=== PATIENT | female | born 1985 | race Caucasian/White ===

== ENCOUNTER 2023-11-07 10:43 | Day surgery (SDC) | payer BC, MEDICAID, SELFPAY ==
--- NOTE | 2023-11-05 08:11 | PCM.HP.BLA ---
History and Physical Date of Admission: 11/07/23 Pre-Op History and Physical ? HPI: The patient is a 38 year old female presenting for pre-operative visit. She is scheduled for hysteroscopy, Sis Endometrial Ablation, for AUB on 11/07/23. Procedure discussed along with risks, benefits and complications. Other alternatives discussed for management. Consent form signed? Yes. ? ? PAST MEDICAL HISTORY PAST MEDICAL HISTORY Diagnosis Date ? Anemia ? ? Celiac disease ? ? ? PAST SURGICAL HISTORY PAST SURGICAL HISTORY Procedure Laterality Date ? DELIVERY ONLY ? 04/13/2010 ? , low transverse ? DELIVERY ONLY ? 07/08/15 ? , low transverse ? LIG/TRNSXJ FLP TUBE ABDL/VAG APPR UNI/BI ? 07/08/15 ? Tubal ligation ? ? ? CURRENT MEDICATIONS Current Outpatient Medications Medication Sig Dispense Refill ? CONCERTA 18 mg biphasic tablet TAKE 1 TABLET BY MOUTH ONCE DAILY IN THE MORNING ? ? ? FLUoxetine HCl 20 mg tablet ? levonorgestrel (MIRENA) 20 mcg/24 hours (8 yrs) 52 mg IUD 1 Each by INTRAUTERINE route as directed. (Patient not taking: Reported on 11/04/2023) 1 Each 0 ? buPROPion XL (WELLBUTRIN XL) 150 mg 24 hr tablet Take 150 mg by mouth once daily. (Patient not taking: Reported on 09/11/2023) ? ? ? topiramate (TOPAMAX) 25 mg tablet Take 25 mg by mouth once daily. (Patient not taking: Reported on 09/11/2023) ? ? ? miSOPROStol (CYTOTEC) 200 mcg tablet Take two tablets PO night before procedure and two tablets morning of procedure (Patient not taking: Reported on 09/11/2023) 4 tablet 0 ? ibuprofen (MOTRIN) 800 mg tablet Take 800 mg by mouth every 8 hours as needed. ? ? ? No current facility-administered medications for this visit. ? ? ALLERGIES: Patient has no known allergies. ? PERSONAL HISTORY: SOCIAL HISTORY Social History ? Tobacco Use ? Smoking status: Former ? ? Packs/day: 1 ? ? Types: Cigarettes ? ? Quit date: 10/18/2014 ? ? Years since quittin.0 ? Smokeless tobacco: Never ? Tobacco comments: ? ? Pt smoked one pack a day on & off x 10 years. Substance Use Topics ? Alcohol use: No ? FAMILY HISTORY: FAMILY HISTORY FAMILY HISTORY Problem Relation Age of Onset ? Diabetes Father ? ? type 2 ? ? REVIEW OF SYMPTOMS: negative except as noted above PHYSICAL EXAMINATION: ? VITALS: Blood pressure 110/68, height 5' 7 (1.702 m), weight 144 lb (65.3 kg), last menstrual period 11/18/2022. ? GENERAL: The patient is well nourished, well hydrated in no acute distress. , The patient is oriented to time, place, and person. NECK: full range ? IMPRESSION: 38yo with AUB ? PLAN: Hysteroscopy, Sis EM Ablation ? Pt has been counseled on risks/benefits and alternatives of surgery including but not limited to anesthesia, bleeding, infection, uterine perforation with subsequent injury to pelvic structures including bowel, bladder, ureters and vessels. Pt wishes to proceed with surgery at this time. Reviewed possible need to perform polypectomy at time of hysteroscopy if polyps noted on exam. Also reviewed if sis ablation not possible may need to perform HTA- pt agreeable. ? Pre and post op instructions reviewed EMB was bengin- favors polypoid tissue. ? I have reviewed and updated past medical and surgical history, medications and allergies Keily Law MD ?3:19 PM
[2023-11-07] VITALS (7 sets, daily range): BP systolic 99–109; BP diastolic 62–76; PULSE 53–80; RESP 16–18; TEMP 36.2–37.2; O2SAT 100; BMI 22.1
[2023-11-07 11:11] LABS: Internal QC Validated? YES +Cl - CLEAR BKGD; Pregnancy, Urine Negative Negative; Record Kit Lot#,Urine Preg HCG0000667200
[2023-11-07] MEDS: Lactated Ringers 1,000 ML 15 ML IV (11:12)
--- NOTE | 2023-11-07 12:07 | DCINST_ITS ---
Discharge Instructions Diet Discharge Diet: No restrictions Activity May resume sexual activity in: 1 week Dressing / Incision Call your doctor if you observe: Fever of 101 or Higher, Inability to urinate, Using more than 1 pad per hour and Uncontrolled pain Follow Up Care Please Follow Up With: Keily Ram MD When: 1-2 weeks post OP if you need an appointment please call [phone] Test Results: Test results from this visit will be discussed in further detail at your follow- up appointment, if applicable. Discharge Plan Admission Attending Provider: Keily Ram Primary Care Provider: Shavon Serna Discharge Orders/Prescriptions Prescriptions: No Action methylphenidate HCl [Concerta] 36 mg tablet extended release 24hr 55 mg PO DAILY Patient Comments: take 1 tablet by mouth every morning fluoxetine 10 mg capsule 10 mg PO DAILY Patient Comments: TAKE 1 CAPSULE BY MOUTH ONCE DAILY buspirone 5 mg tablet 5 mg PO DAILY Referrals / Follow Up: Care Physician,No Primary [Non-Staff] - Disposition Disposition (needs filled in before D/C Order can be placed): Home, Self Care
--- NOTE | 2023-11-07 12:24 | OP.PCM_ITS ---
Report of Operation Date of Procedure: 11/07/23 Pre-Operative Diagnosis: AUB Post-Operative Diagnosis: Same Surgery/Procedure Performed:: Hysteroscopy, Sis Endometrial Ablation Description of Surgical Findings:: bilateral tubal ostia visualized. Normal cavity. Uterine sounded to 10cm, Endocervix 4cm. Device set at 6cm Surgeon: Yo,Keily convention manager: None Type of Anesthesia: MAC Specimen's removed: none Estimated Blood Loss (mL): <5cc Fluids Replaced: 500 Description of Procedure: After informed consent was obtained patient taken to the operating room she is placed in supine position she is given anesthesia simply self insert she is prepped draped normal sterile fashion. Bladder was drained prior to the start of the procedure. At this time the weighted speculum was placed the posterior fornix of the vagina then a single-tooth tenaculum was used to grasp the anterior lip of the cervix. At this time the uterus was sounded to approximately 10 cm the endocervical canal sounded to 4cm. Next cervix was dilated in incremental fashion. Once adequate dilatation was achieved the hysteroscope was inserted using normal saline as distention medium. On hysteroscopy no abnormalities appreciated. Both tubal ostia were visualized. At this time the Sis device was opened. The Sis was set at 6cm. The device was activated. Prior to activation the field test was performed and cavity was intact. The device was then fired and activated for 120 seconds. Once the 120 seconds was completed the device was removed intact and the tenaculum was removed. Good hemostasis was appreciated. Weighted speculum was removed. Vaginal sweep was performed is negative. There were no complications. Anticipated normal postoperative course for this patient. Instrument and lap count were correct ?2. vaginal sweep negative. Grafts/Implants Used: none Procedure Start Time: 12:11 Procedure Stop Time: 12:22 Complications none Admit VTE Documentation VTE Present on Admission: Yes VTE Mechan Device Prophylaxis: SCD's VTE Pharm Prophylaxis ordered?: No Reason prophylaxis not ordered:: Procedure Not Indicated
[2023-11-07] MEDS: Mag Hydrox/Al Hydrox/Simeth 30 ML UDC PO (14:16)
== END 2023-11-07 14:38 | disposition home or self-care (01) ==
LOC: SDC 10:46 → AC 10:48
PROVIDERS: Anesthesiology; PCP Nurse Practitioner Family; Referring Provider Obstetrics & Gynecology; Visit Provider Obstetrics & Gynecology
PROC: 0U5B8ZZ Destruction of Endometrium, Via Natural or Artificial Opening Endoscopic (ICD-10-PCS; CPT 58558; principal; 2023-11-07 11:55)
DX: N93.9 Abnormal uterine and vaginal bleeding, unspecified (principal); F90.9 Attention-deficit hyperactivity disorder, unspecified type; F41.9 Anxiety disorder, unspecified; Z87.19 Personal history of other diseases of the digestive system; Z90.49 Acquired absence of other specified parts of digestive tract; Z87.891 Personal history of nicotine dependence
CPT/HCPCS: 58563; 00952; 81025; J7120; J2405

== ENCOUNTER 2025-01-14 07:54 | Day surgery (SDC) | payer BC, MEDICAID, SELFPAY ==
[2025-01-11 13:07] LABS: Hematocrit 40.6 % (37-47); Hemoglobin 13.1 g/dL (12.0-15.0); Mean Corp Hgb Conc 32.3 g/dL (32-36); Mean Corpuscular Hgb 26.1 pg (27.0-32.0); Mean Platelet Vol. 9.3 fl (6.2-12.0); Platelet Count 208 K/mm3 (150-450); RBC Distribution Width CV 13.4 % (11.6-14.6); RBC Distribution Width SD 39.8 fl (35.1-43.9); Red Blood Count 5.01 M/mm3 (4.2-5.4); White Blood Count 6.2 K/mm3 (4.4-11.0)
[2025-01-11 13:32] LABS: AST(SGOT) 26 U/L (15-37); Alanine Aminotransfer ALT/SGPT 54 U/L (13-56); Alkaline Phosphatase 58 U/L (45-117); Anion Gap 4 (5-15); BUN 13 mg/dL (7-18); BUN/Creat Ratio 16.5 RATIO (10-20); Bilirubin, Direct 0.17 mg/dL (0.00-0.30); Calcium,Total 9.8 mg/dL (8.5-10.1); Chloride 106 mmol/L (98-107); Creatinine, Serum 0.79 mg/dL (0.55-1.02); EST Glomerular Filtration Rate 87 mL/min (>60); Est Glom Filt Rate - Afr Amer 105 mL/min (>60); Globulin 3.5 g/dL (2.2-4.2); Glucose 97 mg/dL (74-106); Magnesium 2.2 mg/dL (1.6-2.6); Potassium 4.3 mmol/L (3.5-5.1); Protein, Total 7.5 g/dL (6.4-8.2); Sodium Level 139 mmol/L (136-145)
[2025-01-11 13:39] LABS: International Normalized Ratio 0.9
[2025-01-11 13:40] LABS: Partial Thromboplast Time 29.3 Seconds (24.1-36.2)
--- NOTE | 2025-01-12 12:54 | EKG12_ITS ---
Test Reason : PRE OP Blood Pressure : */* mmHG Vent. Rate : 77 BPM Atrial Rate : 77 BPM P-R Int : 142 ms QRS Dur : 82 ms QT Int : 386 ms P-R-T Axes : 62 76 59 degrees QTcB Int : 436 ms Normal sinus rhythm Normal ECG Confirmed by Jeff Sherman ([id number]), editor school photograph ANILA URBAN ([id number]) on 01/13/2025 6:56:41 AM Referred By: Keily Ram Confirmed By: Jeff Sherman
--- NOTE | 2025-01-12 17:27 | PCM.HP.BLA ---
History and Physical Date of Admission: 01/14/25 This is a virtual visit using [employer] Video Visit. It required patient-provider interaction for the medical decision making as documented below. I have communicated my name and active licensure. The patient's identity and physical location were verified at the time of this visit. Either the patient or their legal hospital insurance representative has been informed of the risks and benefits of -- and alternatives to -- treatment through a remote evaluation and consents to proceed with the evaluation remotely. Pre-Op History and Physical HPI: The patient is a 39 year old female presenting for pre-operative visit. She is scheduled for TLH, bilateral salpingectomy, cysto, for AUB, Dysmenorrhea, Endometrial Ablation on 01/14/25. Was rescheduled due to being worked up for porphyria.- this was found to be negative. Procedure discussed along with risks, benefits and complications. Other alternatives discussed for management. Consent form signed? Yes. PAST MEDICAL HISTORY PAST MEDICAL HISTORY Diagnosis Date ? Anemia ? Celiac disease PAST SURGICAL HISTORY PAST SURGICAL HISTORY Procedure Laterality Date ? DELIVERY ONLY 04/13/2010 , low transverse ? DELIVERY ONLY 07/08/2015 , low transverse ? HYSTEROSCOPY ENDOMETRIAL ABLATION 11/07/2023 Sis ? LIG/TRNSXJ FLP TUBE ABDL/VAG APPR UNI/BI 07/08/2015 Tubal ligation ? REMOVAL GALLBLADDER CURRENT MEDICATIONS Current Outpatient Medications Medication Sig Dispense Refill ? dextroamphetamine-amphetamine (ADDERALL) 5 mg tablet Take 1 tablet by mouth once daily. ? celecoxib (CELEBREX) 200 mg capsule Take by mouth two times a day as needed. No current facility-administered medications for this visit. ALLERGIES: Patient has no known allergies. PERSONAL HISTORY: SOCIAL HISTORY Social History Tobacco Use ? Smoking status: Former Current packs/day: 0.00 Types: Cigarettes Quit date: 10/18/2014 Years since quittin.2 ? Smokeless tobacco: Never ? Tobacco comments: Pt smoked one pack a day on & off x 10 years. Vaping Use ? Vaping status: Some Days ? Substances: CBD Substance Use Topics ? Alcohol use: No ? Drug use: Never FAMILY HISTORY: FAMILY HISTORY FAMILY HISTORY Problem Relation Age of Onset ? Diabetes Father type 2 REVIEW OF SYMPTOMS: negative except as noted above PHYSICAL EXAMINATION: VITALS: Last menstrual period 10/09/2024. GENERAL: The patient is well nourished, well hydrated in no acute distress. , The patient is oriented to time, place, and person. NECK: full range of motion Indication Abnormal uterine bleeding Impression Normal appearing anteverted uterus that measures 92 mm x 44 mm x 57 mm. 3D rendering of the uterus confirms the proper location of the IUD within the endometrial cavity. The central endometrium complex measures 4.5 mm in combined thickness. No abnormal blood flow to suggest a polyp or focal endometrial pathology is observed within the endometrial complex. The contour of the endometrial cavity was normal on 3-D imaging. Both ovaries are visualized and appear normal. No adnexal masses were observed. There is no free fluid visualized in the peritoneal cavity. Technique: Three dimensional imaging was created on a dedicated stand-alone 3D workstation with images created and archived, and supervised and reviewed by the interpreting physician utilizing images from a US Scan performed on 10/09/23 ?Duplex scan was performed using B-Mode/reyes scale imaging and Doppler spectral analysis and color flow.? Recommendations Follow up as clinically indicated. Menstrual History LMP on 09/15/2023 IMPRESSION: 39yo with AUB, dysmenorrhea s/p ENDOMETRIAL ABLATION PLAN: TLH, BILATERAL SALPINGECTOMY, CYSTO Pt has been counseled on risks/benefits and alternatives of surgery including but not limited to anesthesia, bleeding, infection, injury to pelvic structures including bowel, bladder, ureters and vessels. Pt wishes to proceed with surgery at this time. [place] protocol reviewed- pt will come to office 01/04/25 to sign consent and clam picker drinks/body wash All questions were answered today- pre and post op instructions reviewed I have reviewed and updated past medical and surgical history, medications and allergies Keily Law MD
[2025-01-14] VITALS (17 sets, daily range): BP systolic 91–107; BP diastolic 55–73; PULSE 59–83; RESP 16–18; TEMP 36.2–37.4; O2SAT 97–100; BMI 23.4
--- NOTE | 2025-01-14 | HYST_PTH ---
PATIENT: POLO THOMPSON LOC: [facility] [place][id number] AGE/SX: 39/F ROOM: RE01/14/[address]: Dr. Keily Ram, MDDOB: 1985 BED: DIS: 01/14/2025 SPEC #: [id number] RECD: 01/14/25 13:22 STATUS: GIAN LAWRENCE #: [id number] NICA: 01/14/25 00:[address]: Keily Ram DEPT: SURGICAL PATHOLOGY RECD BY: Prince Reed ENTERED: 01/14/25 13:22 SP TYPE: HYSTERECT OTHR DR: Shavon Serna, AUTO DAMAGE ESTIMATOR-C Tissues: Uterus, NOS Procedures: Surgery Specimen Level V HEADER OPERATION: Hysterectomy, TLH, bilateral salpingectomy, cystoscopy PRE-OP DIAGNOSIS: Abnormal uterine bleeding TISSUE SUBMITTED: Uterus, cervix, bilateral fallopian tubes MICROSCOPIC DIAGNOSIS Uterus, cervix, bilateral fallopian tubes, hysterectomy, bilateral salpingectomy: Cervix - Mild chronic inflammation. Endometrium - Proliferative endometrium. Myometrium - No pathologic diagnosis. Bilateral fallopian tubes - No pathologic diagnosis A paratubal cyst. GABRIELA/ 01/15/2025 MICROSCOPIC DESCRIPTION Slides are reviewed. GROSS DESCRIPTION Received in fixative is one container labeled with the patient's name and designated uterus, cervix, bilateral fallopian tubes. The specimen consists of a hysterectomy specimen consisting of uterus with cervix and detached bilateral fallopian tubes. The uterus with cervix weighs 107 gm and measures 10 x 8 x 4.5 cm. Both cornua show filshie clips in the proximal portion of the fallopian tube. Filshie clips appear to be intact. The serosal surface is newberry glistening. The ectocervical mucosa is unremarkable. The external os is circular in contour. The endocervical canal measures 3.5 cm in length and the endocervical mucosa is newberry glistening and unremarkable. The triangular endometrial cavity measures 4.5 cm in length and 2 cm in width. The endometrium is newberry, glistening without any mass lesions and measures 0.2 cm in thickness. Sections of the uterine wall do not reveal any mass lesions and measures 2cm in thickness. Fallopian tubes are not identified as right or left and measures 6cm in length and up to 0.5cm in diameter. Fimbrial end is identified. Sections reveal unremarkable cut surfaces. Second fallopian tube measures 6cm in length and 0.5cm in diameter. A paratubal cyst is noted at the proximal end measuring 0.5cm in greatest dimension and filled with clear fluid. Beating Machine Operator sections are submitted in eight cassettes as follows: 1 - anterior cervix, 2 - posterior cervix, 3 & 4 - anterior uterine wall, 5 & 6 - posterior uterine wall, 7- one fallopian tube, 8- second fallopian tube and paratubal cyst. SJ: 01/14/2025 TC:5 CPT: 98225
[2025-01-14 08:24] LABS: Internal QC Validated? YES +Cl - CLEAR BKGD; Pregnancy, Urine Negative Negative
[2025-01-14] MEDS: metroNIDAZOLE 500 MG/100 ML BAG 100 MG IV (08:28)
[2025-01-14] MEDS: Magnesium 1 GM over 15 mins IV (08:29)
[2025-01-14] MEDS: Lactated Ringers 1,000 ML 40 ML IV ×2 (08:29→17:23)
[2025-01-14] MEDS: Phenazopyridine 95 MG Tablet 190 MG PO (08:30)
[2025-01-14] MEDS: Celecoxib 200 MG Capsule 400 MG PO (08:30)
[2025-01-14] MEDS: Gabapentin 600 MG Tablet PO (08:30)
[2025-01-14] MEDS: Enoxaparin 40 MG/0.4 ML Syringe SC (08:30)
[2025-01-14] MEDS: Acetaminophen 500 MG Tablet 1000 MG PO (08:30)
--- NOTE | 2025-01-14 09:03 | PCM.PRE.AN2 ---
ASA Classification* ASA Classification ASA Classification: 3 Assessment & Plan Anesthesia* Anesthesia Assessment Anesthesia Assessment: Discussed sedation and/or anesthesia options, risks, benefits, and alternatives with patient/parents/legal guardian/POA. Questions invited. The patient/parents/legal guardian/POA seems to understand and agrees to proceed with anesthesia plan. Reviewed the physical assessment, medical history, allergy history and patient home medications list prior to surgery/procedure/anesthetic and documented any changes. Performed airway and anesthesia risk assessments. Anesthesia Type Anesthesia Type: General (Consider GlideScope.) History Source History Obtained from:: Patient and Chart Anesthesia Focused Assessment* Temperature: 97.8 F Pulse Rate: 83 Blood Pressure: 107/73 Respiratory Rate: 16 Pulse Ox: 100 Oxygen Delivery Method: Room Air Airway Assessment Mouth opens: >3 cm Mallampati Score: IV Teeth Condition: Chipped/Broken (Patient has several chipped molars on lower jaw. All teeth are tight) Neck Range of motion (ROM): Full ROM Focused Labs Anesthesia Preop lab: CBC WBC 6.2 K/mm3 (4.4-11.0) 01/11/25 12:50 01/11/25 RBC 5.01 M/mm3 (4.2-5.4) 01/11/25 12:50 01/11/25 Hgb 13.1 g/dL (12.0-15.0) 01/11/25 12:50 01/11/25 Hct 40.6 % (37-47) 01/11/25 12:50 01/11/25 Plt Count 208 K/mm3 (150-450) 01/11/25 12:50 01/11/25 CHEMISTRY Potassium 4.3 mmol/L (3.5-5.1) 01/11/25 12:50 01/11/25 Sodium 139 mmol/L (136-145) 01/11/25 12:50 01/11/25 Magnesium 2.2 mg/dL (1.6-2.6) 01/11/25 12:50 01/11/25 BUN 13 mg/dL (7-18) 01/11/25 12:50 01/11/25 Creatinine 0.79 mg/dL (0.55-1.02) 01/11/25 12:50 01/11/25 Glucose 97 mg/dL (74-106) 01/11/25 12:50 01/11/25 COAG PT 12.0 SECONDS (11.7-14.9) 01/11/25 12:50 01/11/25 Urine Test Negative Negative 01/14/25 08:10 01/14/25 Pre-Assessment Diagnosis/Proposed Procedure Planned Operative Procedure(s): Hysterectomy, TLH, bilateral salpingectomy, cystoscopy, ERAS Anesthesia History Anesthesia History - administrative assistant coordinator: Anesthesia History - administrative assistant coordinator Hx Hospitalization No 01/01/25 10:12 Any Problems With Anesthesia Yes: PONV 01/01/25 10:12 Cholinesterase deficiency No 01/01/25 10:12 You/Your Family Experience No 01/01/25 10:12 fever (hyperthermia) with Relationship Recent Exposure to Contagious No 01/14/25 08:20 Disease Does patient have nerve No 01/01/25 10:12 stimulator Patient instructed to have device shut off --Does patient have Pacemaker No 01/14/25 08:20 or ICD? When Was Last Pacemaker Check QUESTION #4 FULL TEXT: You/Your Family Experience fever (hyperthermia) with Anesthesia Last Oral Intake Last Oral intake: Last Oral Intake NPO since 22:00 01/14/25 08:20 Meds taken in AM with sips of No 01/14/25 08:20 water? Meds patient instructed to take am of surgery PONV PONV - administrative assistant coordinator: PONV - administrative assistant coordinator Female Yes 01/01/25 10:12 HX of Motion Sickness Yes 01/01/25 10:12 HX of N/V After Surgery Yes 01/01/25 10:12 Non-Smoker No 01/01/25 10:12 Duration of Surgery greater Yes 01/01/25 10:12 than 60 minutes Number of Risk Factors 4 01/01/25 10:12 PONV Score Severe Risk 01/01/25 10:12 Height & Weight Height & Weight: Anesthesia: Height & Weight Height 5 ft 7 in 01/14/25 08:20 Weight: 68 kg 01/14/25 08:20 Body Mass Index (BMI) 23.4 01/14/25 08:20 Respiratory Assessment Respiratory Assessment - administrative assistant coordinator: Respiratory Tract Infection Hx - administrative assistant coordinator Hx Respiratory Tract Infection No 01/01/25 10:12 Any additional information?: Yes Hx Respiratory Tract Infection: Yes (Patient had flu a about a week and a half ago. No lingering symptoms.) STOP Sleep Apnea STOP Sleep Apnea - administrative assistant coordinator: STOP Sleep Apnea - administrative assistant coordinator Hx Hypertension No 01/01/25 10:12 Hx Sleep Apnea No 01/01/25 10:12 CPAP BIPAP Do you snore loudly (louder No 01/01/25 10:12 than talking or can be heard Do you often feel tired/ No 01/01/25 10:12 fatigued/ sleepy during daytime? Has anyone observed you stop No 01/01/25 10:12 breathing during sleep? STOP Results Negative 01/01/25 10:12 QUESTION #5 FULL TEXT : Do you snore loudly (louder than talking or can be heard through closed doors)? Tobacco Use History Tobacco Use History - administrative assistant coordinator: Tobacco Use History - administrative assistant coordinator Tobacco Use Smoking Status Current every day smoker 01/01/25 10:12 Hx Tobacco Use Yes 01/01/25 10:12 Years Smoking Packs Smoked per Day Smoking Cessation Date was within the last 15 years Hx Smoking Cessation Date Hx Smoking Cessation No 01/01/25 10:12 Counseling Any additional information?: Yes Smoking Status: Current every day smoker (Patient did not smoke today.) Hematologic Medial History Hematologic Hx - administrative assistant coordinator: Hematologic Medical Hx - oyster opener Hx of Blood Transfusion No 01/01/25 10:12 Hx of Transfusion in last 3 No 01/01/25 10:12 Months Date of Last Transfusion (if within last 3 months) Ever experience any problems No 01/01/25 10:12 with transfusion(s)? Specify any problems Hx of Preganancy in last 3 No 01/01/25 10:12 Months Nurse Filling Out Transfusion MGRIFFITH 01/01/25 10:12 & Questions: Date: 01/01/25 01/01/25 10:12 Time: 10:14 01/01/25 10:12 Patient unable to answer at this time (ie. confused, unrespo /Reproduction History /Reproductive History - administrative assistant coordinator: /Reproductive Hx- administrative assistant coordinator Hx Now No 01/01/25 10:12 Gestational Age (in weeks): EDC: Hx Hx Para Hx Section SAB No 01/01/25 10:12 Active Medications Active Medications: Current Medications Generic Name Dose Route Start Last Admin Trade Name Rosalioq PRN Reason Stop Dose Admin Acetaminophen 1,000 mg 01/14/25 09:50 01/14/25 08:30 Acetaminophen 500 Mg Tablet PO 01/14/25 09:51 1,000 mg PREOP ONE Administration Celecoxib 400 mg 01/14/25 09:50 01/14/25 08:30 Celecoxib 200 Mg Capsule PO 01/14/25 09:51 400 mg X1 ONE Administration Dexamethasone Sodium Phosphate 8 mg 01/14/25 09:50 Dexamethasone 4 Mg/Ml Vial IV 01/14/25 09:51 X1 ONE Enoxaparin Sodium 40 mg 01/14/25 09:50 01/14/25 08:30 Enoxaparin 40 Mg/0.4 Ml Syringe SC 01/14/25 09:51 40 mg X1 ONE Administration Gabapentin 600 mg 01/14/25 09:50 01/14/25 08:30 Gabapentin 600 Mg Tablet PO 01/14/25 09:51 600 mg PREOP ONE Administration Lactated Ringer's 1,000 mls @ 40 mls/hr 01/14/25 09:50 01/14/25 08:29 IV 40 mls/hr .Q25H LELA Administration Cefazolin Sodium 2 gm/ N/A 20 mls @ 400 mls/hr 01/14/25 09:50 IV 01/14/25 09:52 PREOP ONE Lactated Ringer's 1,000 mls @ 70 mls/hr 01/14/25 10:30 IV .[id number] LELA Metronidazole 500 mg in 100 mls @ 100 mls/hr 01/14/25 09:50 01/14/25 08:28 Flagyl IV 01/14/25 10:49 100 mls/hr PREOP ONE Administration Magnesium Sulfate 1 gm/ 102 mls @ 408 mls/hr 01/14/25 09:50 01/14/25 08:29 Dextrose IV 01/14/25 10:04 408 mls/hr X1 ONE Administration Insulin Human Lispro 0 unit 01/14/25 09:50 Insulin Lispro 100 Unit/Ml Insuln.Pen SC 01/14/25 15:50 Q4H PRN PRN BG >/= 180, SEE PROTOCOL Protocol Ondansetron HCl 4 mg 01/14/25 10:30 Ondansetron 4 Mg/2 Ml Vial IV 01/14/25 10:31 X1 ONE Phenazopyridine HCl 190 mg 01/14/25 09:50 01/14/25 08:30 Phenazopyridine 95 Mg Tablet PO 01/14/25 09:51 190 mg X1 ONE Administration PFSH Medical History PONV (postoperative nausea and vomiting) Marijuana use Arthritis Blood disorder Easy bruising Excessive bleeding Syncope Celiac disease Gastric reflux Smoker Wears glasses ADHD Anxiety Low iron Restless legs Migraine headache Dietary restriction Heartburn Home Medications ?Medication ?Instructions ?Recorded ?Last Taken ?Type celecoxib 200 mg capsule 200 mg PO BID PRN PRN pain 01/01/25 Unknown History Allergy/AdvReac Type Severity Reaction Status Date / Time latex Allergy Intermediate Hives Verified 01/01/25 10:10 Surgical History Hx laparoscopic cholecystectomy History of Social History Smoking Status: Current every day smoker (Patient did not smoke today.) tobacco type: cigarettes Review of Systems (Anesthesia) ROS Narrative System reviewed and no additional complaints, except as documented.
[2025-01-14 09:45] LABS: Bedside Glucose 109 mg/dL (74-106)
--- NOTE | 2025-01-14 09:58 | DCINST_ITS ---
Discharge Instructions Diet Discharge Diet: No restrictions DC O2, CPAP, BIPAP needs Home O2 Discharge instructions: No Dressing / Incision Discharge Activity: May Not Drive (while taking narcotics. may drive when pain controlled. ) and May Shower Return to work on:: 02/25/25 May shower in (days): 1 May resume sexual activity in: 6-8 weeks Weight Bearing Status: Full weight bearing Lifting Restrictions: 20 Additional Activity Instructions:: NOTHING IN THE VAGINA x 6-8 weeks. Dressing / Incision Call your doctor if your incision/area has: Continuous Slow Oozing, Sudden Increased Bleeding, Increased Pain/ Swelling, Increased Redness, Foul Smelling Discharge and Swelling at the incision site Call your doctor if you observe: Fever of 101 or Higher, Inability to have a bowel movement, Using more than 1 pad per hour and Uncontrolled pain Change Dressing in: leave in place till F/U (you have skin glue over incision sites- do not pick off) Cleanse incision/area with: Soap & Water, Keep Dressing Clean & Dry and - (you may let soap and water run over incision sites and dab dry. ) Follow Up Care Please Follow Up With: Keily Ram MD When: 1-2 weeks as scheduled for post op visit Test Results: Test results from this visit will be discussed in further detail at your follow- up appointment, if applicable. Discharge Plan Admission Attending Provider: Keily Ram Primary Care Provider: Shavon Serna Instructions Print Language: Stateless Discharge Orders/Prescriptions Prescriptions: No Action celecoxib 200 mg capsule 200 mg PO BID PRN PRN (Reason: pain) Other Ambulatory Orders: 12 Lead EKG (Routine) Timeframe: 20250105 Location: None Selected Ordered By: Dr. Cade Rojo Referrals / Follow Up: Shavon Serna, HISTOTECHNOLOGIST SUPERVISOR-C [Primary Care Provider] - Disposition Disposition (needs filled in before D/C Order can be placed): Home, Self Care
--- NOTE | 2025-01-14 10:00 | PCM.OPRPT ---
Operative Report (Standard) Operative Information Date of Procedure: 01/14/25 Pre-Operative Diagnosis: AUB, dysmenorrhea, S/p endmoetrial ablation Post-Operative Diagnosis: same Surgery/Procedure Performed: TLH, Bilateral salpingectomy ,cysto drilling machine operator: Yes Police Superintendent: Mady Osullivan Tasks completed by membership assistant: Opening & closing, Dissecting tissue, Removing tissue and Insert Trochanter Additional expanded function dental assistant?: Yes Additional Inside Sales Account Representative #2: emelina patel PA-s Tasks completed by expanded function dental assistant #2: Other (uterine manipulation) Type of Anesthesia: General and Local RN Documented Start/Stop Times: Operation Date: 01/14/25 09:50 Case Time Into Pre-Op 01/14/25 07:59 Procedure Start Time: 10:28 Procedure Stop Time: 11:47 Select all DRAINS/GRAFTS/IMPLANTS that apply: None Estimated Blood Loss: 25 Fluids Replaced: 1000 Specimen collected: Yes Description of specimen(s) removed: uterus, cervix, bilateral fallopian tubes Description of surgery: Patient take to OR and prepped and draped in usual sterile fashion in dorsal lithotomy position with her arms tucked in a neurologically safe and neutral position. The uterus sounded to 9 cm. The spare hand 3cm manipulator was placed- sutured in place at 3/9. Boykin placed. Attention was turned to the abdomen. All port sites were infiltrated with 0.5%marcaine before the incisions were made. The anterior abdominal wall was tented up with towel clamps and using a direct entry approach a 5 mm intraumbilical port was placed. Intraperitoneal placement was confirmed with the laparoscope and the pneumoperitoneum was created. The patient was placed in Trendelenburg and 5 mm right and left lower quadrant ports were placed under direct visualization. Air seal rapid insufflator was used. The bowel was swept away. Ovaries appeared normal. The mesosalpinx starting at fimbriated end were grasped, clamped, sealed and transected with the Ligasure. Bilateral filshe clips noted. The round ligaments were divided. The anterior peritoneum was dissected down to create the bladder flap with blunt dissection and the LigaSure. The uterine arteries were isolated, clamped, sealed and cut. There was minimal back bleeding from the uterus. Straight bites on uterine arteries performed to drop them off the cuff. The manipulator was used as guide to create colpotomy using monopolar tip of ligasure. once specimen was removed attention was turned to vaginal portion. The specimen was handed off. The cuff was closed with interrupted 0-vicryl figure of 8 sutures. Cystoscopy was performed bilateral ureters were visualized with good efflux. bladder was intact. boykin replaced and sponge stick placed in vagina. The pneumoperitoneum was recreated and the cuff and pedicles were hemostatic. Gianna was placed over cuff and pedicles. The skin incisions were closed with skin glue and 3-0 monocryl in the LLQ port site. sponge stick removed. The vaginal sweep was completed by me. boykin removed Grafts/Implants Used: none Surgical Findings: bilateral filshie clips. normal ovaries. normal uterus. Complications Complications: No Admit VTE Documentation VTE Present on Admission: Yes VTE Mechan Device Prophylaxis: SCD's VTE Pharm Prophylaxis ordered?: Yes
[2025-01-14] MEDS: dexAMETHasone 4 MG/ML Vial 8 MG IV (10:20)
[2025-01-14] MEDS: Cefazolin 2 GM in Syringe 10 ML IV (10:20)
[2025-01-14] MEDS: Bupivacaine Mpf 0.5% 30 ML VIAL (10:43)
[2025-01-14] MEDS: Ondansetron 4 MG/2 ML Vial IV (11:40)
--- NOTE | 2025-01-14 12:10 | PCM.POST.ANE ---
Anesthesia: Postop Eval I Current Vital Signs Temperature: 97.2 F Pulse Rate: 78 Blood Pressure: 101/62 Respiratory Rate: 16 Pulse Ox: 100 Oxygen Delivery Method: Nasal Cannula (2L per ERAS protocol) Assessment Airway patent: Yes Spontaneous unlabored respirations: Yes Mental status: Awake and Apprehensive nausea: No Vomiting: No Anesthesia Complication: No Fluid Hydration Crystalloid volume administer (ml): 900 Total IV fluid infused: 900 Progress Note Anesthesia document: Postop Eval 1 completed: Yes
[2025-01-14] MEDS: Lactated Ringers @ 70 MLS/HR 70 ML IV (12:37)
[2025-01-14] MEDS: HYDROcodone Bitartrate/Apap 5/325 Tablet PO (14:35)
[2025-01-14] MEDS: Ketorolac 30 MG/ML Syringe IV (17:44)
[2025-01-14] MEDS: Furosemide 20 MG/2 ML VIAL IV (17:49)
--- NOTE | 2025-01-14 18:49 | POSTOPAN2_ITS ---
Anesthesia Postop Eval I Sum Postop Eval Completion status Anesthesia document: Postop Eval 1 completed: Yes Anesthesia Postop Eval I Summary Anesthesia Postop Eval I Summary: Anesthesia Postop Eval I: Assessment Summary Airway patent Yes 01/14/25 12:11 [email or web address] Spontaneous unlabored Yes 01/14/25 12:11 INLAYER [email or web address] respirations Mental status Awake,Apprehensive 01/14/25 12:11 INLAYER [email or web address] nausea No 01/14/25 12:11 INLAYER [email or web address] Vomiting No 01/14/25 12:11 INLAYER [email or web address] Anesthesia Postop Eval I: Fluid Summary Crystalloid volume administer 900 01/14/25 12:11 [email or web address] [email or web address] (ml) Colloids volume administered ( ml) Blood Product volume administered (ml) Total IV fluid infused 900 01/14/25 12:11 INLAYER [email or web address] Anesthesia Postop Eval I: Summary Notes Anesthesia Complication No 01/14/25 12:11 INLAYER [email or web address] Anesthesia Complication Comment: Post-operative progress note Anesthesia: Postop Eval II Evaluation Mental status: Awake and Calm Pain Level: 2 nausea: No Vomiting: No Complications Anesthesia Complication: No
--- NOTE | 2025-01-14 18:49 | PCM.POSTANE2 ---
Anesthesia Postop Eval I Sum Postop Eval Completion status Anesthesia document: Postop Eval 1 completed: Yes Anesthesia Postop Eval I Summary Anesthesia Postop Eval I Summary: Anesthesia Postop Eval I: Assessment Summary Airway patent Yes 01/14/25 12:11 RESPIRATORY [email or web address] Spontaneous unlabored Yes 01/14/25 12:11 RESPIRATORY [email or web address] respirations Mental status Awake,Apprehensive 01/14/25 12:11 RESPIRATORY [email or web address] nausea No 01/14/25 12:11 RESPIRATORY [email or web address] Vomiting No 01/14/25 12:11 RESPIRATORY [email or web address] Anesthesia Postop Eval I: Fluid Summary Crystalloid volume administer 900 01/14/25 12:11 RESPIRATORY [email or web address] (ml) Colloids volume administered ( ml) Blood Product volume administered (ml) Total IV fluid infused 900 01/14/25 12:11 RESPIRATORY PRACTITIONER.[email or web address] Anesthesia Postop Eval I: Summary Notes Anesthesia Complication No 01/14/25 12:11 RESPIRATORY [email or web address].[email or web address] Anesthesia Complication Comment: Post-operative progress note Anesthesia: Postop Eval II Evaluation Mental status: Awake and Calm Pain Level: 2 nausea: No Vomiting: No Complications Anesthesia Complication: No
== END 2025-01-14 18:50 | disposition home or self-care (01) ==
LOC: SDC 07:56 → AC 07:56
PROVIDERS: Anesthesiology; PCP Nurse Practitioner Family; Referring Provider Obstetrics & Gynecology; Visit Provider Obstetrics & Gynecology
PROC: 0UT94ZZ Resection of Uterus, Percutaneous Endoscopic Approach (ICD-10-PCS; CPT 58571; principal; 2025-01-14 09:30)
DX: N93.9 Abnormal uterine and vaginal bleeding, unspecified (principal); N94.6 Dysmenorrhea, unspecified; Z87.891 Personal history of nicotine dependence; Z30.49 Encounter for surveillance of other contraceptives; N83.8 Other noninflammatory disorders of ovary, fallopian tube and broad ligament; Z90.49 Acquired absence of other specified parts of digestive tract; Z98.51 Tubal ligation status
CPT/HCPCS: 58571; 52000; 00840; 36415; 80048; 80076; 81025; 82962; 83735; 85027; 85610; 85730; 86850; 86900; 86901; 88307; 93005; J1940; J2405; J3475